=== PATIENT | female | born 1985 | race American Indian/Alaskan Native ===

== ENCOUNTER 2017-04-14 00:39 | Outpatient (CLI) | payer MEDICAID ==
[2017-04-14] MEDS ORDERED: LACTATED RINGERS 500 ML IV ONE (00:42)
[2017-04-14 02:04] LABS: Hematocrit 36.6 % (30.3-42.9); Hemoglobin 12.7 gm/dl (10.1-14.3); Mean Corpuscular HGB Conc 35 % (30-34); Mean Corpuscular Hemoglobin 30 pg (28-32); Mean Corpuscular Volume 88 fl (79-97); Platelet Count 212 K/mm3 (140-440); Red Blood Count 4.18 M/mm3 (3.65-5.03); Red Cell Distribution Width 13.2 % (13.2-15.2); White Blood Count 9.7 K/mm3 (4.5-11.0)
[2017-04-14 04:23] VITALS: BP 110/68
[2017-04-14 05:56] LABS: Hematocrit 36.8 % (30.3-42.9); Hemoglobin 12.3 gm/dl (10.1-14.3); Mean Corpuscular HGB Conc 33 % (30-34); Mean Corpuscular Hemoglobin 30 pg (28-32); Mean Corpuscular Volume 89 fl (79-97); Platelet Count 232 K/mm3 (140-440); Red Blood Count 4.12 M/mm3 (3.65-5.03); Red Cell Distribution Width 13.4 % (13.2-15.2); White Blood Count 12.1 K/mm3 (4.5-11.0)
[2017-04-14] MEDS ORDERED: TYLENOL PO ONE (06:04)
== END 2017-04-14 06:15 | disposition home or self-care (01) ==
LOC: TRG 00:39 → LD 01:51 → TRG 06:15
PROVIDERS: ATTEND Obstetrics & Gynecology
DX: O47.03 False labor before 37 completed weeks of gestation, third trimester (principal); Z3A.31 31 weeks gestation of pregnancy
CPT/HCPCS: 36415; 59025; 85027; J7120